=== PATIENT | female | born 1990 | race Two or more races ===

== ENCOUNTER 2017-03-20 19:53 | Emergency (ER) | payer MEDICAID ==
[2017-03-20 20:06] VITALS: BP 107/72; PULSE 93; RESP 14; TEMP 99; O2SAT 97
[2017-03-20] MEDS ORDERED: AZITHROMYCIN 250 MG TAB PO ONE (20:06)
--- NOTE | 2017-03-20 20:09 | EDPHY ---
H & P Time Seen by Provider: 03/20/17 20:02 HPI/ROS: CHIEF COMPLAINT: Ear pain, throat pain HISTORY OF PRESENT ILLNESS: The patient is a 26-year-old female who comes to the emergency department complaining of right-sided ear pain and sore throat that began this morning. She has a history of sinus allergies that have been worse over the last couple weeks. No fever. No cough. No shortness of breath. No headache. No neck pain. No rash. No hearing changes. Slight nasal congestion REVIEW OF SYSTEMS: Constitutional: denies: chills, fever, recent illness, recent injury EENTM: See HPI denies: blurred vision, double vision, Respiratory: denies: cough, shortness of breath Cardiac: denies: chest pain, irregular heart rate, lightheadedness, palpitations Gastrointestinal/Abdominal: denies: abdominal pain, diarrhea, nausea, vomiting, blood streaked stools Genitourinary: denies: dysuria, frequency, hematuria, pain Musculoskeletal: denies: joint pain, muscle pain Skin: denies: lesions, rash, jaundice, bruising Neurological: denies: headache, numbness, paresthesia, tingling, dizziness, weakness Hematologic/Lymphatic: denies: blood clots, easy bleeding, easy bruising Immunologic/allergic: denies: HIV/AIDS, transplant EXAM: GENERAL: Well-appearing, well-nourished and in no acute distress. HEAD: Atraumatic, normocephalic. EYES: Pupils equal round and reactive to light, extraocular movements intact, sclera anicteric, conjunctiva are normal. ENT: Purulent effusion behind right tympanic membrane , nares patent, oropharynx clear without exudates. Moist mucous membranes. NECK: Normal range of motion, supple without lymphadenopathy or JVD. LUNGS: Breath sounds clear to auscultation bilaterally and equal. No wheezes rales or rhonchi. HEART: Regular rate and rhythm without murmurs, rubs or gallops. ABDOMEN: Soft, nontender, normoactive bowel sounds. No guarding, no rebound. No masses appreciated. BACK: No CVA tenderness, no spinal tenderness, step-offs or deformities EXTREMITIES: Normal range of motion, no pitting or edema. No clubbing or cyanosis. NEUROLOGICAL: Cranial nerves II through XII grossly intact. Normal speech, normal gait. 5/5 strength, normal movement in all extremities, normal sensation PSYCH: Normal mood, normal affect. SKIN: Warm, dry, normal turgor, no visible rashes or lesions. Source: Patient Exam Limitations: No limitations - Medical/Surgical History Hx Asthma: No Hx Chronic Respiratory Disease: No Hx Diabetes: No Hx Cardiac Disease: No Hx Renal Disease: No Hx Cirrhosis: No Hx Alcoholism: No - Family History Significant Family History: No pertinent family hx - Social History Smoking Status: Never smoked Alcohol Use: Sober Drug Use: None Constitutional: Initial Vital Signs Temperature (C) 37.2 C 03/20/17 20:04 Heart Rate 93 03/20/17 20:04 Respiratory Rate 14 03/20/17 20:04 Blood Pressure 107/72 03/20/17 20:04 O2 Sat (%) 97 03/20/17 20:04 O2 Delivery Mode Room Air Allergies/Adverse Reactions: No Known Allergies Allergy (Verified 03/20/17 20:03) Home Medications: Medication Instructions Recorded Azithromycin 250 mg PO DAILY #4 tablet 03/20/17 Medical Decision Making ED Course/Re-evaluation: Patient has otitis media on exam. Throat does not appear abnormal. No palpable lymphadenopathy. I will treat her with azithromycin. She agrees with this plan. I encouraged her to take allergy medications during the fall. She understands and agrees with this plan. We discussed indications for returning. Differential Diagnosis: Partial list of the Differential diagnosis considered include but were not limited to; otitis media, viral pharyngitis, strep throat, upper respiratory tract infection, sinusitis, allergies and although unlikely based on the history and physical exam, I also considered meningitis, sepsis, abscess. I discussed these differential diagnoses and the plan with the patient as well as the usual and expected course. The patient understands that the diagnosis is provisional and that in medicine we are not always correct and that further workup is often warranted. Usual and customary warnings were given. All of the patient's questions were answered. The patient was instructed to return to the emergency department should the symptoms at all worsen or return, otherwise to followup with the physician as we discussed. - Data Points Medications Given: Discontinued Medications Azithromycin (Zithromax) 500 mg PO EDNOW ONE PRN Reason: Protocol Stop: 03/20/17 20:07 Last Admin: 03/20/17 20:12 Dose: 500 mg Departure - Departure Disposition: Home, Routine, Self-Care Clinical Impression: Acute otitis media Qualifiers: Otitis media type: suppurative Laterality: right Recurrence: not specified as recurrent Spontaneous tympanic membrane rupture: without spontaneous rupture Qualified Code(s): H66.001 - Acute suppurative otitis media without spontaneous rupture of ear drum, right ear Condition: Fair Instructions: Otitis Media (ED) Referrals: AMBER AARON,. [Primary Care Provider] - As per Instructions Prescriptions: Azithromycin 250 mg PO DAILY #4 tablet
== END 2017-03-20 20:18 | disposition home or self-care (01) ==
LOC: CED 19:53
DX: H66.001 Acute suppurative otitis media without spontaneous rupture of ear drum, right ear (principal)

== ENCOUNTER 2017-07-22 08:44 | Emergency (ER) | payer MEDICAID ==
[2017-07-22] MEDS ORDERED: IBUPROFEN 600 MG TAB PO ONE (08:55)
[2017-07-22] MEDS ORDERED: IBUPROFEN 200 MG TAB PO ONE ×2 (09:00→09:01)
--- NOTE | 2017-07-22 09:01 | EDPHY ---
H & P Time Seen by Provider: 07/22/17 08:55 HPI/ROS: 27-year-old female presents complaining of sore throat, bilateral earache, fevers chills and body aches for approximately 2 days. She denies shortness of breath, she denies chest pain. She denies cough. No sick exposures. She states no one else at home is currently ill. She did not receive a flu vaccine this year. No recent hospitalizations. Review of systems As per HPI General no fever no chills no weakness HEENT no eye pain no eye discharge. No eye redness, positive sore throat positive URI symptoms positive earache Respiratory no cough, no shortness of breath Cardiac no chest pain, no peripheral edema GI no abdominal pain, no diarrhea, no constipation, no nausea, no vomiting no flank pain, no hematuria, no dysuria Musculoskeletal positive myalgias, no joint pain Heme no easy bruising, no easy bleeding Endo no polyuria, no polydipsia Skin no rashes, no pruritus Neuro no syncope, no dizziness, no headaches Psych is no suicidal ideation, no homicidal ideation Past Medical/Surgical History: Immunizations up-to-date No recent hospitalizations Social History: She denies alcohol, tobacco or drug use Smoking Status: Never smoked Physical Exam: 27-year-old female Alert and oriented nontoxic appearance, no acute distress afebrile Atraumatic normocephalic Extraocular muscles intact, anicteric TMs clear bilaterally Nares mild yellowish discharge Oropharynx mild erythema no tonsillar swelling no exudate no uvular deviation, tolerating own secretions Neck supple no lymphadenopathy Lungs clear to auscultation bilaterally Heart regular rate and rhythm, tachycardic Abdomen normoactive bowel sounds soft nontender Extremities no cyanosis clubbing or edema Skin no rash Constitutional: Initial Vital Signs Temperature (C) 37.2 C 07/22/17 08:48 Heart Rate 120 H 07/22/17 08:48 Respiratory Rate 18 07/22/17 08:48 Blood Pressure 118/88 H 07/22/17 08:48 O2 Sat (%) 97 07/22/17 08:48 O2 Delivery Mode Room Air Allergies/Adverse Reactions: No Known Allergies Allergy (Verified 07/22/17 08:54) Home Medications: Medication Instructions Recorded Depo-Provera 07/22/17 Medical Decision Making ED Course/Re-evaluation: Patient seen and evaluated for sore throat earache body aches Physical exam remarkable for erythema to posterior pharynx without exudate and without significant lymphadenopathy Rapid strep negative Influenza negative Impression Viral pharyngitis Plan Symptomatic care Rest, acetaminophen or ibuprofen as needed for fever or pain Encourage fluids Differential Diagnosis: Differential diagnosis considered but not limited to: URI, bilateral ear infection, pharyngitis, influenza, viral syndrome - Data Points Laboratory Results: 07/22/17 07/22/17 07/22/17 Unknown 09:20 08:55 Influenza A,B Rapid NEGATIVE FOR FLU (NEGATIVE) Group A Strep Screen NEGATIVE (NEGATIVE) Group A Strep DNA Pending Medications Given: Discontinued Medications Ibuprofen (Motrin) 600 mg PO EDNOW ONE Stop: 07/22/17 08:56 Last Admin: 07/22/17 09:07 Dose: Not Given Ibuprofen (Motrin) 600 mg PO EDNOW ONE Stop: 07/22/17 09:02 Last Admin: 07/22/17 09:04 Dose: 600 mg Departure - Departure Disposition: Home, Routine, Self-Care Clinical Impression: Acute viral pharyngitis Condition: Good Instructions: Pharyngitis (ED) Referrals: AMBER AARON,Heri [Primary Care Provider] - As per Instructions
[2017-07-22 09:27] VITALS: O2SAT 97
[2017-07-22 10:04] VITALS: BP 115/76; PULSE 118; RESP 16; TEMP 100.3
== END 2017-07-22 09:51 | disposition home or self-care (01) ==
LOC: CED 08:44
DX: J02.8 Acute pharyngitis due to other specified organisms (principal); B97.89 Other viral agents as the cause of diseases classified elsewhere
CPT/HCPCS: 87400-PO; 87880-PO

== ENCOUNTER 2018-04-06 17:37 | Emergency (ER) | payer MEDICAID ==
[2018-04-06 17:56] VITALS: BP 117/84
[2018-04-06] MEDS ORDERED: IBUPROFEN 600 MG TAB PO ONE (18:15)
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
== END 2018-04-06 18:50 | disposition home or self-care (01) ==
LOC: CED 17:37
DX: S20.311A Abrasion of right front wall of thorax, initial encounter (principal); S20.229A Contusion of unspecified back wall of thorax, initial encounter; S16.1XXA Strain of muscle, fascia and tendon at neck level, initial encounter; Y04.8XXA Assault by other bodily force, initial encounter; Y92.414 Local residential or business street as the place of occurrence of the external cause